=== PATIENT | male | born 1970 | race Caucasian/White ===

== ENCOUNTER 2019-11-27 21:21 | Emergency (ER) | payer OTHER ==
[~2019-11-27] VITALS: Ht 172.7 cm; Wt 109.4 kg
[2019-11-27 21:21] VITALS: BP 157/97
[~2019-11-27 21:21] MED LIST: ACET1TAB33 PO; ALLO300T PO; LEVO50TA PO; PRED50TA PO
[2019-11-27] MEDS ORDERED: CEPH-264 PO (22:11)
--- NOTE | 2019-11-27 22:12 | PHYS DOC ---
Past History Past Medical History: Hypertension, Hypothyroid Past Surgical History: No Surgical History Alcohol Use: Occasionally Drug Use: None General Adult EDM: Chief Complaint: FINGER INJURY HPI: HPI: 49-year-old male presents with fishhook caught in his left index finger. He was out fishing today and lower had already been in the leg. He was working on it and it stuck him in the finger. He was unable to pull it out so he came to the emergency room. Patient's tetanus is at least 5 years old. He has no other complaints at this time. Review of Systems: Review of Systems: Constitutional: Denies fever or chills Eyes: Denies change in visual acuity HENT: Denies nasal congestion or sore throat Respiratory: Denies cough or shortness of breath Cardiovascular: Denies chest pain or edema GI: Denies abdominal pain, nausea, vomiting, bloody stools or diarrhea : Denies dysuria Musculoskeletal: Denies back pain or joint pain Integument: Fishing lure and left index finger Neurologic: Denies headache, focal weakness or sensory changes Endocrine: Denies polyuria or polydipsia Lymphatic: Denies swollen glands Psychiatric: Denies depression or anxiety Heart Score: Risk Factors: Risk Factors: DM, Current or recent (<one month) smoker, HTN, HLP, family history of CAD, obesity. Risk Scores: Score 0 - 3: 2.5% MACE over next 6 weeks - Discharge Home Score 4 - 6: 20.3% MACE over next 6 weeks - Admit for Clinical Observation Score 7 - 10: 72.7% MACE over next 6 weeks - Early Invasive Strategies Allergies: Allergies: Allergies Coded Allergies Type Severity Reaction Last Updated Verified No Known Drug Allergies 12/06/14 No Physical Exam: PE: Constitutional: Well developed, well nourished, no acute distress, non-toxic appearance. [] HENT: Normocephalic, atraumatic, bilateral external ears normal, oropharynx moist, no oral exudates, nose normal. [] Eyes: PERRLA, EOMI, conjunctiva normal, no discharge. [] Neck: Normal range of motion, no tenderness, supple, no stridor. [] Cardiovascular:Heart rate regular rhythm, no murmur [] Lungs & Thorax: Bilateral breath sounds clear to auscultation [] Abdomen: Bowel sounds normal, soft, no tenderness, no masses, no pulsatile masses. [] Skin: Single barbed fishhook in left index finger. [] Back: No tenderness, no CVA tenderness. [] Extremities: No tenderness, no cyanosis, no clubbing, ROM intact, no edema. [] Neurologic: Alert and oriented X 3, normal motor function, normal sensory function, no focal deficits noted. [] Psychologic: Affect normal, judgement normal, mood normal. [] Current Patient Data: Vital Signs: Vital Signs Date Time Temp Pulse Resp B/P (MAP) Pulse Ox O2 Delivery O2 Flow Rate FiO2 11/27/19 21:21 98.6 72 16 157/97 (117) 98 Room Air EKG: EKG: [] Radiology/Procedures: Radiology/Procedures: [] Course & Med Decision Making: Course & Med Decision Making Pertinent Labs and Imaging studies reviewed. (See chart for details) I was able to remove the fishhook from the patient's finger. See note below for more details. I will place him on Keflex 3 times daily for 7 days. We will give the first dose in the emergency room. His tetanus was updated in the ER. He is stable for discharge at this time. Dragon Disclaimer: DragEquipboard Disclaimer: This electronic medical record was generated, in whole or in part, using a voice recognition dictation system. Foreign Body Removal Procedure Indication: Fishing lure stuck in left index finger Procedure: I obtained verbal consent from the patient for mechanical removal of a fishhook from his finger. Area of the foreign body was thoroughly irrigated with saline. 1% lidocaine without epinephrine was used for anesthesia. Once good anesthesia was achieved, I made a small incision with a #11 blade to free up the aba on the fishhook. Hook was then removed. There was minimal bleeding. There were no complications. The patient was given a tetanus update first dose of Keflex in the ED. A Band-Aid was used to cover the wound. The patient tolerated the procedure well. Complications: [None Departure Departure: Impression: Primary Impression: [place] injury to finger Qualified Codes: S69.92XA - Unspecified injury of left wrist, hand and finger(s), initial encounter Disposition: 01 HOME/RESIDENCE PRIOR TO ADM Condition: IMPROVED Referrals: SIENA ROMANO (PCP) Patient Instructions: Fish Hook Removal Scripts Cephalexin (KEFLEX) 500 Mg Capsule 1 CAP PO TID for infection prophylaxis for 7 Days, #21 CAP 0 Refills Prov: NITIN DAI DO 11/27/19 Justification of Admission: Justification of Admission: Justification of Admission Dx: N/A NITIN DAI DO Nov 27, 2019 22:12
[2019-11-27] MEDS ORDERED: DIPH,PERTUSS(ACELL),TET VAC/PF 0.5 ML SYRINGE. VAX IM ONE (22:15)
[2019-11-27] MEDS ORDERED: CEPHALEXIN 250 MG CAPSULE PO ONE (22:15)
== END 2019-11-27 22:35 | disposition home or self-care (01) ==
LOC: ER 21:21
DX: S60.451A Superficial foreign body of left index finger, initial encounter (principal); I10 Essential (primary) hypertension; E03.9 Hypothyroidism, unspecified; W45.8XXA Other foreign body or object entering through skin, initial encounter; Y93.89 Activity, other specified; Y92.89 Other specified places as the place of occurrence of the external cause; Y99.8 Other external cause status
CPT/HCPCS: 10120; 90471; 90715; 99285-25

== ENCOUNTER 2020-10-17 17:31 | Emergency (ER) | payer OTHER ==
[~2020-10-17] VITALS: Ht 172.7 cm; Wt 108.4 kg
[2020-10-17 17:31] VITALS: BP 154/77
[~2020-10-17 17:31] MED LIST changes: +CEPH-264 PO
--- NOTE | 2020-10-17 17:44 | PHYS DOC ---
Past History Past Medical History: Hypertension, Hypothyroid Past Medical History Gout Past Surgical History: No Surgical History Alcohol Use: Occasionally Drug Use: None General Adult HPI: HPI: ".. I have a gout .." I have been taking allopurinol and the colchicine is not blocking the finger flare... When it gets this bad use any prednisone. I am scheduled go on a trip tomorrow to [facility] and [place]. Flonase 1 see if I can get some prednisone to block this flare down. 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 Has periodic flares of gout. Patient is on allopurinol. Patient does have colchicine which does not seem to work. Patient requesting a prescription for prednisone since he is going on a trip tomorrow. States when colchicine does not work he usually requires prednisone. Patient denies any change in diet. Patient denies any fever chills. Patient denies any trauma. Patient denies any recent travel. Patient denies any history immunosuppression. Normally follows at [facility]. Pt. ruiz with Dr. Romano. Review of Systems: Review of Systems: Constitutional: Denies fever or chills Eyes: Denies change in visual acuity HENT: Denies nasal congestion or sore throat Respiratory: Denies cough or shortness of breath Cardiovascular: Denies chest pain or edema GI: Denies abdominal pain, nausea, vomiting, bloody stools or diarrhea : Denies dysuria Musculoskeletal: Right first toe pain described as typical for his gout flare Integument: Denies rash Neurologic: Denies headache, focal weakness or sensory changes Endocrine: Denies polyuria or polydipsia Lymphatic: Denies swollen glands Psychiatric: Denies depression or anxiety Family History: Family History: Noncontributory Current Medications: Current Meds: See nursing for home meds Allergies: Allergies: Allergies Coded Allergies Type Severity Reaction Last Updated Verified No Known Drug Allergies 12/06/14 No Physical Exam: PE: Constitutional: Well developed, well nourished, no acute distress, non-toxic appearance. [] HENT: Normocephalic, atraumatic, bilateral external ears normal, oropharynx moist, no oral exudates, nose normal. [] Eyes: PERRLA, EOMI, conjunctiva normal, no discharge. [] Neck: Normal range of motion, no tenderness, supple, no stridor. [] Cardiovascular:Heart rate regular rhythm, no murmur [] Lungs & Thorax: Bilateral breath sounds clear to auscultation [] Abdomen: Bowel sounds normal, soft, no tenderness, no masses, no pulsatile masses. [] Skin: Warm, dry, no erythema, no rash. [] Back: No tenderness, no CVA tenderness. [] Extremities: No tenderness, no cyanosis, no clubbing, ROM intact, no edema. [] Except findings of the right first toe Neurologic: Alert and oriented X 3, normal motor function, normal sensory function, no focal deficits noted. [] Psychologic: Affect normal, judgement normal, mood normal. [] EKG: EKG: [] Radiology/Procedures: Radiology/Procedures: Declined [] Heart Score: C/O Chest Pain: N/A Risk Factors: Risk Factors: DM, Current or recent (<one month) smoker, HTN, HLP, family history of CAD, obesity. Risk Scores: Score 0 - 3: 2.5% MACE over next 6 weeks - Discharge Home Score 4 - 6: 20.3% MACE over next 6 weeks - Admit for Clinical Observation Score 7 - 10: 72.7% MACE over next 6 weeks - Early Invasive Strategies Course & Med Decision Making: Course & Med Decision Making Pertinent Labs and Imaging studies reviewed. (See chart for details) Take prednisone 50 mg daily for 5 days. Monitor for infection. Hold on allopurinol while taking the prednisone. Could consider short course of colchicine. Follow-up primary care. Return if any concerns. 1. Gout exacerbation [] Dragon Disclaimer: Annie Disclaimer: This electronic medical record was generated, in whole or in part, using a voice recognition dictation system. Departure Departure: Referrals: SIENA ROMANO (PCP) Scripts Prednisone (PREDNISONE) 50 Mg Tablet 50 MG PO DAILY for gout for 14 Days, #14 TAB Prov: JOSSUE SAM MD 10/17/20 JOSSUE SAM MD Oct 17, 2020 17:44
[2020-10-17] MEDS ORDERED: PRED50TA PO (17:57)
[2020-10-17] MEDS ORDERED: predniSONE 20 MG TABLET PO ONE (18:00)
== END 2020-10-17 18:24 | disposition home or self-care (01) ==
LOC: ER 17:31
DX: M10.9 Gout, unspecified (principal); M79.674 Pain in right toe(s); I10 Essential (primary) hypertension; E03.9 Hypothyroidism, unspecified
CPT/HCPCS: 99283; J7512